=== PATIENT | male | born 1970 | race Hispanic/Latino ===

== ENCOUNTER 2019-04-21 16:42 | Emergency (ER) | payer SELFPAY ==
[2019-04-21] MEDS ORDERED: HYDROCODONE/APAP 10/325 TAB ONE (17:31)
[2019-04-21] MEDS ORDERED: TETANUS & DIPHTHERIA TOX,ADULT 0.5 ML VIAL ONE (17:31)
--- NOTE | 2019-04-21 18:03 | RAD REPORT ---
EXAM DESCRIPTION: RAD - Hand Right 3 View - 04/21/2019 5:25 pm CLINICAL HISTORY: Right hand pain status post injury FINDINGS: A laceration involves the distal aspect of the fourth digit. 3.3 centimeter avulsion fracture of the fourth terminal tuft. No dislocation Tiny radiopaque foreign body within the soft tissues of third digit
[2019-04-21] MEDS ORDERED: LIDOCAINE 1% MPF 5 ML VIAL ONE (18:39)
[2019-04-21] MEDS ORDERED: CEFAZOLIN SODIUM 1 GM/VIAL ONE (18:39)
[2019-04-21] MEDS ORDERED: WATER FOR INJ,STERILE 10 ML ONE (18:40)
--- NOTE | 2019-04-21 19:29 | ER ---
Nurse's Notes [facility] Name: Avni Orellana Age: 48 yrs Sex: Male : 1970 Arrival Date: 04/21/2019 Time: 16:45 Bed Treatment Private MD: Diagnosis: Laceration without foreign body of right ring finger with damage to nail;Fracture of unspecified phalanx of right ring finger-avulsion fracture of distal tuft of right fourth finger Presentation: 04/21 16:47 Presenting complaint: Child states: he was at work and cut part of his finger with the tw2 electric saw, RIGHT 4th finger, it was cut right under the nail. Transition of care: patient was not received from another setting of care. Onset of symptoms was April 21, 2019. Risk Assessment: Do you want to hurt yourself or someone else? Patient reports no desire to harm self or others. Initial Sepsis Screen: Does the patient meet any 2 criteria? No. Patient's initial sepsis screen is negative. Does the patient have a suspected source of infection? No. Patient's initial sepsis screen is negative. Care prior to arrival: gauze and tape. 16:47 Method Of Arrival: Ambulatory tw2 16:47 Acuity: LUCRECIA 4 tw2 Triage Assessment: 16:52 General: Appears in no apparent distress. Behavior is calm, cooperative, appropriate tw2 for age. Pain: Complains of pain in palmar aspect of distal phalanx of right ring finger and right ring fingernail. Historical: - Allergies: 16:51 No Known Allergies; tw2 - Home Meds: 16:51 None [Active]; tw2 - PMHx: 16:51 None; tw2 - PSHx: 16:51 Appendectomy; tw2 - Immunization history:: Last tetanus immunization: unknown. - Social history:: Smoking status: . - Ebola Screening: : Patient denies travel to an Ebola-affected area in the 21 days before illness onset. Screenin:10 Abuse screen: Denies threats or abuse. Denies injuries from another. Nutritional ss screening: No deficits noted. Tuberculosis screening: Never had TB. Fall Risk None identified. Assessment: 17:10 General: Appears in no apparent distress. comfortable, Behavior is calm, cooperative, ss Denies fever, feeling ill, fatigue, chills. Pain: Complains of pain in right ring fingernail Pain currently is 8 out of 10 on a pain scale. Quality of pain is described as tender, throbbing, Is continuous. Neuro: Level of Consciousness is awake, alert, obeys commands, Oriented to person, place, time, situation. Cardiovascular: Pulses are palpable in right radial artery and left radial artery. Respiratory: Airway is patent Respiratory effort is even, unlabored, Respiratory pattern is regular, symmetrical. EENT: Nares are clear Oral mucosa is moist. Derm: Skin is normal. Musculoskeletal: Circulation, motion, and sensation intact. Range of motion: intact in all extremities, Swelling absent. 18:57 Reassessment: Patient appears in no apparent distress at this time. Patient and/or ss family updated on plan of care and expected duration. Pain level reassessed. Patient is alert, oriented x 3, equal unlabored respirations, skin warm/dry/pink. AWAITING LAC REPAIR. CHARITO PAUL AT BEDSIDE AT THIS TIME. Vital Signs: 16:50 BP 144 / 80; Pulse 65; Resp 17; Temp 98.4(TE); Pulse Ox 95% on R/A; Weight 97.52 kg tw2 (R); Pain 7/10; ED Course: 16:45 Patient arrived in ED. mr 16:50 Triage completed. tw2 16:51 Arm band placed on. tw2 16:55 Katie Arce RN is Primary Nurse. ss 17:02 Luan Orantes NP is PHCP. pm1 17:02 Herve Kang MD is Attending Physician. pm1 17:10 Patient has correct armband on for positive identification. Bed in low position. Call ss light in reach. 17:15 Katie Arce, RN is Primary Nurse. ss 17:26 Hand Right 3 View XRAY In Process Unspecified. EDMS 17:41 Patient maintains SpO2 saturation greater than 95% on room air. ss 19:16 Assist provider with laceration repair on right ring fingernail that was 2.5 cm. or tw2 less using sutures. Set up tray. Performed by Luan Orantes NP. 19:17 Patient did not have IV access during this emergency room visit. tw2 19:26 Juan Ojeda MD is Referral Physician. pm1 Administered Medications: 17:23 Drug: Tetanus-Diphtheria Toxoid Adult 0.5 ml {Breakdown Person: [employer]. Exp: ss 01/27/2021. Lot #: [id number]. } Route: IM; Site: left deltoid; 18:32 Follow up: Response: No adverse reaction tw2 17:24 Drug: Davenport 10 mg-325 mg 1 tabs Route: PO; ss 18:32 Follow up: Response: No adverse reaction; Pain is decreased tw2 18:30 Drug: Ancef 1 grams Route: IM; Site: left gluteus; tw2 19:41 Follow up: Response: No adverse reaction; Adverse reaction, Physician notified ss 18:57 Drug: Lidocaine (1 %) 5 ml {Note: ADMIN BY Juan Carlos ORANTES NP TO AFFECTED AREA.} Volume: 5 ss ml; Route: Infiltration; Outcome: 19:29 Discharge ordered by . pm1 19:50 Discharged to home ambulatory. 19:50 Condition: good 19:50 Discharge instructions given to patient, family, Instructed on discharge instructions, follow up and referral plans. medication usage, Demonstrated understanding of instructions, follow-up care, medications, Prescriptions given X 2. 19:51 Patient left the ED. Signatures: Dispatcher [employer] Gayle Ingram Shelby, RN RN ss Marinas, Patrick, NP FINISHING TECHNICIAN pm1 Ita Hyde RN RN tw2
--- NOTE | 2019-04-21 19:29 | EDPHYS ---
Physician Documentation [facility] Name: Avni Orellana Age: 48 yrs Sex: Male : 1970 Arrival Date: 04/21/2019 Time: 16:45 Bed Treatment Private MD: ED Physician Herve Kang HPI: 04/21 18:06 This 48 yrs old Male presents to ER via Ambulatory with complaints of Finger pm1 laceration. 18:06 The patient or guardian reports a laceration, irregular. The complaints affect the pm1 right ring finger. Context: The problem was sustained at work, resulted from laceration from circular saw. Onset: The symptoms/episode began/occurred just prior to arrival. Modifying factors: The symptoms are alleviated by nothing, the symptoms are aggravated by nothing. Associated signs and symptoms: Pertinent negatives: cyanosis distally, decreased sensation distally, fever, numbness distally, tingling distally. Severity of symptoms: in the emergency department the symptoms are unchanged. The patient has not experienced similar symptoms in the past. The patient has not recently seen a physician. Historical: - Allergies: 16:51 No Known Allergies; tw2 - Home Meds: 16:51 None [Active]; tw2 - PMHx: 16:51 None; tw2 - PSHx: 16:51 Appendectomy; tw2 - Immunization history:: Last tetanus immunization: unknown. - Social history:: Smoking status: . - Ebola Screening: : Patient denies travel to an Ebola-affected area in the 21 days before illness onset. ROS: 18:06 Constitutional: Negative for fever, chills, and weight loss, Eyes: Negative for injury, pm1 pain, redness, and discharge, ENT: Negative for injury, pain, and discharge, Neck: Negative for injury, pain, and swelling, Cardiovascular: Negative for chest pain, palpitations, and edema, Respiratory: Negative for shortness of breath, cough, wheezing, and pleuritic chest pain, Abdomen/GI: Negative for abdominal pain, nausea, vomiting, diarrhea, and constipation, Back: Negative for injury and pain, : Negative for injury, bleeding, discharge, and swelling. 18:06 Neuro: Negative for headache, weakness, numbness, tingling, and seizure. 18:06 MS/extremity: Positive for laceration, pain, of the right ring finger. 18:06 Skin: Positive for laceration(s), of the right ring finger. Exam: 18:06 Constitutional: This is a well developed, well nourished patient who is awake, alert, pm1 and in no acute distress. Head/Face: Normocephalic, atraumatic. Eyes: Pupils equal round and reactive to light, extra-ocular motions intact. Lids and lashes normal. Conjunctiva and sclera are non-icteric and not injected. Cornea within normal limits. Periorbital areas with no swelling, redness, or edema. ENT: Nares patent. No nasal discharge, no septal abnormalities noted. Tympanic membranes are normal and external auditory canals are clear. Oropharynx with no redness, swelling, or masses, exudates, or evidence of obstruction, uvula midline. Mucous membranes moist. Neck: Trachea midline, no thyromegaly or masses palpated, and no cervical lymphadenopathy. Supple, full range of motion without nuchal rigidity, or vertebral point tenderness. No Meningismus. Chest/axilla: Normal chest wall appearance and motion. Nontender with no deformity. No lesions are appreciated. Cardiovascular: Regular rate and rhythm with a normal S1 and S2. No gallops, murmurs, or rubs. Normal PMI, no JVD. No pulse deficits. Respiratory: Lungs have equal breath sounds bilaterally, clear to auscultation and percussion. No rales, rhonchi or wheezes noted. No increased work of breathing, no retractions or nasal flaring. Abdomen/GI: Soft, non-tender, with normal bowel sounds. No distension or tympany. No guarding or rebound. No evidence of tenderness throughout. Back: No spinal tenderness. No costovertebral tenderness. Full range of motion. 18:06 Skin: Appearance: normal except for affected area, injury, laceration(s), the wound is approximately 3 cm(s), of the palmar aspect of distal phalanx of right ring finger, Damage to medial aspect of nail with nail bed intact. Vital Signs: 16:50 BP 144 / 80; Pulse 65; Resp 17; Temp 98.4(TE); Pulse Ox 95% on R/A; Weight 97.52 kg tw2 (R); Pain 7/10; Laceration: 19:24 Wound Repair of 2cm ( 0.8in ) subcutaneous laceration to palmar aspect of distal pm1 phalanx of right ring finger. Irregularly shaped.. Distal neuro/vascular/tendon intact. Anesthesia: Digital block administered with 3 mls of 1% lidocaine. Wound prep: Extensive cleansing with betadine with hibiclenz by me, Wound irrigation with saline by me, Wound explored extensively, Copious irrigation. Skin closed with 7 5-0 Prolene using simple sutures and sterile technique. Dressed with Neosporin, tube gauze, non-adherent dressing. Patient tolerated well. MDM: 17:02 Patient medically screened. pm1 19:24 Data reviewed: vital signs. Data interpreted: Pulse oximetry: on room air is 95 %. pm1 Interpretation: normal. Counseling: I had a detailed discussion with the patient and/or guardian regarding: the historical points, exam findings, and any diagnostic results supporting the discharge/admit diagnosis, radiology results, the need for outpatient follow up, to return to the emergency department if symptoms worsen or persist or if there are any questions or concerns that arise at home. 19:24 Counseling: I had a detailed discussion with the patient and/or guardian regarding: the pm1 need for outpatient follow up, for definitive care, a hand specialist. 04/21 17:06 Order name: Hand Right 3 View XRAY; Complete Time: 18:06 pm1 04/21 18:08 Order name: Prolene, Sutures; Complete Time: 18:56 pm1 04/21 18:08 Order name: Dressing - Wound; Complete Time: 18:56 pm1 04/21 18:08 Order name: Gloves, Sterile; Complete Time: 18:56 pm1 04/21 18:08 Order name: Setup Suture Tray; Complete Time: 18:22 pm1 04/21 18:17 Order name: Wound Care; Complete Time: 18:34 pm1 04/21 19:33 Order name: Finger Splint; Complete Time: 19:42 pm1 Administered Medications: 17:23 Drug: Tetanus-Diphtheria Toxoid Adult 0.5 ml {C[employer] Supervisor: [employer]. Exp: ss 01/27/2021. Lot #: [id number]. } Route: IM; Site: left deltoid; 18:32 Follow up: Response: No adverse reaction tw2 17:24 Drug: Cameron 10 mg-325 mg 1 tabs Route: PO; ss 18:32 Follow up: Response: No adverse reaction; Pain is decreased tw2 18:30 Drug: Ancef 1 grams Route: IM; Site: left gluteus; tw2 19:41 Follow up: Response: No adverse reaction; Adverse reaction, Physician notified ss 18:57 Drug: Lidocaine (1 %) 5 ml {Note: ADMIN BY Juan Carlos ARAUJO NP TO AFFECTED AREA.} Volume: 5 ss ml; Route: Infiltration; Disposition: 04/22 09:04 Co-signature as Attending Physician, Herve Kang MD I agree with the assessment and kdr plan of care. Disposition: 04/21/19 19:29 Discharged to Home. Impression: Laceration without foreign body of right ring finger with damage to nail, Fracture of unspecified phalanx of right ring finger - avulsion fracture of distal tuft of right fourth finger. - Condition is Stable. - Discharge Instructions: Finger Fracture, Laceration Care, Adult. - Prescriptions for Keflex 500 mg Oral Capsule - take 1 capsule by ORAL route every 6 hours for 10 days; 40 capsule. Tylenol- Codeine #3 300-30 mg Oral Tablet - take 2 tablets by ORAL route every 6 hours As needed; 20 tablet. - Medication Reconciliation Form, Thank You Letter, Antibiotic Education, Prescription Opioid Use, Work release form form. - Follow up: Emergency Department; When: As needed; Reason: Worsening of condition. Follow up: Juan Ojeda MD; When: 2 - 3 days; Reason: Recheck today's complaints, Continuance of care, Re-evaluation by your physician. - Problem is new. - Symptoms have improved. Signatures: Dispatcher [employer] EDMS Herve Kang MD MD [facility] Katie Arce RN RN Luan Chi NP HYDROLOGIC MODELER pm1 Ita Hyde RN RN tw2 Corrections: (The following items were deleted from the chart) 04/21 19:51 19:29 04/21/2019 19:29 Discharged to Home. Impression: Laceration without foreign body ss of right ring finger with damage to nail; Fracture of unspecified phalanx of right ring finger - avulsion fracture of distal tuft of right fourth finger. Condition is Stable. Forms are Work release form, Medication Reconciliation Form, Thank You Letter, Antibiotic Education, Prescription Opioid Use. Follow up: Emergency Department; When: As needed; Reason: Worsening of condition. Follow up: Juan Ojeda; When: 2 - 3 days; Reason: Recheck today's complaints, Continuance of care, Re-evaluation by your physician. Problem is new. Symptoms have improved. pm1
== END 2019-04-21 19:51 | disposition home or self-care (01) ==
LOC: ER 16:42
PROC: 0JQJ0ZZ Repair Right Hand Subcutaneous Tissue and Fascia, Open Approach (ICD-10-PCS; principal; 2019-04-21)
DX: S61.314A Laceration without foreign body of right ring finger with damage to nail, initial encounter (principal); S62.634A Displaced fracture of distal phalanx of right ring finger, initial encounter for closed fracture; W31.2XXA Contact with powered woodworking and forming machines, initial encounter; Y93.9 Activity, unspecified; Y92.89 Other specified places as the place of occurrence of the external cause; Y99.8 Other external cause status; Z23 Encounter for immunization
CPT/HCPCS: 90471; 90714; 96372; 99284; J0690